=== PATIENT | female | born 1955 | race Two or more races ===

== ENCOUNTER → 2024-11-24 | Outpatient (CLI) | payer OTHER, MEDICAID, SELFPAY ==
--- NOTE | 2024-11-24 13:55 | XR_ITS ---
Examination: Bone densitometry Date and time of exam:November 24, 2024 1313 hours INDICATIONS: Menopause age 54, family history, mother osteoporosis, personal history left breast cancer, vitamin D calcium 20 years Technique: Lumbar spine and hip total bone mineralization values of an calculated. Peak reference and age match control results have been displayed. Findings: Lumbar spine total bone mineralization is1.065 gm/cm2. This is 0.2 standard deviations above peak reference. This is 2.3 standard deviations above age-matched controls. Hip total bone mineralization is 0.864 gm/cm2 This is 0.7 standard deviations below peak reference. This is 0.8 standard deviations above age-matched controls Impression: There is normal mineralization based on lumbar spine measurements. There is osteopenia based on hip measurements Lumbar mineralization is increased 4.9% compared with June 24, 2016 Hip mineralization is decreased 2.1% compared with June 24, 2016
== END | disposition home or self-care (01) ==
PROVIDERS: PCP Physician Assistant; Referring Provider Physician Assistant; Visit Provider Physician Assistant
DX: Z13.820 Encounter for screening for osteoporosis (principal); M85.89 Other specified disorders of bone density and structure, multiple sites
CPT/HCPCS: 77080